=== PATIENT | female | born 1960 | race Caucasian/White ===

== ENCOUNTER 2016-06-29 13:16 | Emergency (ER) | payer MEDICARE ==
[~2016-06-29 13:16] MED LIST: ADVAIR100 INH; ADVIL PO; BRINT10T PO; CIP5 PO; CRESTOR40 MG PO; FLEX PO; GEODON; HALCION0.25 MG PO; L-LYSINE500 M1 PO; LIDOVISCUD; NEXIUM40 PO; PCET PO; PR25 PO; PRAVAC PO; PRILOSEC40 MG PO; PROZAC PO; PYR100B PO; REST15 PO; REST75 PO; SEROQUEL300 MG PO; SUCR PO; SYMBICORT 160/41 INH INH; TRAZODONE; TRAZODONE PO; TRAZODONE150 MG PO; URISPAS100 MG PO; WELLSR150 PO; XANAX1 MG PO; XANAX2 MG PO; ZANTAC150 MG PO; ZOCOR10 PO
[2016-06-29 15:15] LABS: BASOPHILS 0.1 %; BASOPHILS ABSOLUTE 0.01 10/3/uL (0.0-0.16); EOSINOPHILS 1.4 %; EOSINOPHILS ABSOLUTE 0.11 10/3/uL (0.0-0.53); HEMATOCRIT 37.9 % (36.0-48.0); HEMOGLOBIN 12.6 g/dL (12.0-16.0); IMMATURE GRANULOCYTES 0.1 %; IMMATURE GRANULOCYTES ABSOLUTE 0.01 10/3/uL (0.0-0.11); LYMPHOCYTES 30.1 %; LYMPHOCYTES ABSOLUTE 2.44 10/3/uL (0.67-4.30); MEAN CORPUS HGB CONC 33.2 g/dL (32.0-36.0); MEAN CORPUSCULAR HEMOGLOB 30.3 pg (26.0-34.0); MEAN CORPUSCULAR VOLUME 91.1 fL (80-100); MEAN PLATELET VOLUME 9.6 fL (9.2-13.0); MONOCYTES 12.1 %; MONOCYTES ABSOLUTE 0.98 10/3/uL (0.21-1.20); NEUTROPHILS 56.2 %; NEUTROPHILS ABSOLUTE 4.55 10/3/uL (2.02-8.40); PLATELET COUNT 337 10/3/uL (150-400); RBC DISTRIBUTION WIDTH 13.5 % (12.0-16.0); RED CELL COUNT 4.16 10/6/uL (4.0-5.6); WHITE BLOOD CELLS 8.1 10/3/uL (4.5-10.5)
[2016-06-29 15:17] LABS: MANUAL DIFF NO %
[2016-06-29 15:22] LABS: INTERNATIONAL NORMAL RATI 1.1 UNITS (-)
[2016-06-29 15:31] LABS: A/G RATIO 0.8 (0.7-1.9); ALBUMIN 3.2 G/DL (3.5-5.0); BUN (BLOOD UREA NITROGEN) 10 MG/DL (6-23); CHLORIDE, SERUM 102 MMOL/L (96-112); CO2 (CARBON DIOXIDE) 31 MMOL/L (24-34); CREATININE 0.86 MG/DL (0.55-1.02); GFR AFRICAN AMERICAN 89 ML/MIN (>=60); GFR NON AFRICAN AMERICAN 77 ML/MIN (>=60); GLOBULIN 3.9 G/DL (2.5-4.1); GLUCOSE, SERUM 105 MG/DL (60-99); POTASSIUM, SERUM 3.7 MMOL/L (3.5-5.3); SGOT(AST) 39 U/L (5-40); SGPT(ALT) 38 U/L (5-65); SODIUM, SERUM 139 MMOL/L (135-148); TOTAL PROTEIN 7.1 G/DL (6.0-8.5)
[2016-06-29 15:33] LABS: ALKALINE PHOSPHATASE 126 U/L (45-117); TOTAL BILIRUBIN 1.7 MG/DL (0-1.2)
[2016-06-29 17:04] LABS: ASCORBIC ACID (UR NOT ORDER) NEG (NEG); BILIRUBIN, URINE NEGATIVE (NEG); ER URINALYSIS TAT 0 Hrs 11 Mins; KETONE, URINE NEGATIVE (NEG); LEUKOCYTE ESTERASE(NOT OR NEG (NEG); NITRITE (URINE) NEG (NEG); WBC (NOT ORDERED) (RFLEX) 2 (0-5)
[2016-06-29 17:20] LABS: AMPHETAMINES (NOT ORD) NEG (NEG); BENZODIAZEPINES (NOT ORD) POS (NEG); CANNABINOIDS (THC) POS (NEG); COCAINE (NOT ORDERED) NEG (NEG); PHENCYCLIDINE(PCP) NEG (NEG)
[2016-06-29 17:21] LABS: BARBITURATES (NOT ORDERED NEG (NEG); OPIATES POS (NEG); TRICYCLICS NEG (NEG)
== END 2016-06-29 21:11 | disposition home or self-care (01) ==
LOC: ER 13:16
PROVIDERS: Nurse Practitioner Family
DX: S82.852A Displaced trimalleolar fracture of left lower leg, initial encounter for closed fracture (principal); S99.922A Unspecified injury of left foot, initial encounter; S99.921A Unspecified injury of right foot, initial encounter; F17.200 Nicotine dependence, unspecified, uncomplicated; Z88.5 Allergy status to narcotic agent; Z79.899 Other long term (current) drug therapy; X58.XXXA Exposure to other specified factors, initial encounter
CPT/HCPCS: 71010; 73610-LT; 73610-RT; 80053; 80305; 81001; 85025; 85610; 96372; 99284; A9270-GY; J1040; J1885

== ENCOUNTER 2016-07-01 11:22 | Observation (INO) | payer MEDICARE ==
--- NOTE | ~2016-07-01 | OP ---
Record Of Operation [facility] [address] [place]. [address] NAME: LAUREL SILVERMAN : 62 STATUS : DIS [place]ola PAT#: [id number] AGE: 55 ADM/REG DATE : 07/01/16 MR#: [id number] REPORT SERV DATE: 07/08/16 DICTATED BY: MARLEY BRENNER DATE: 07/08/16 REPORT STATUS : Draft TRANSCRIBED BY: MARIA ISABEL DATE: 07/08/16 DATE OF PROCEDURE: 07/01/2016 PREOPERATIVE DIAGNOSES: 1. Right distal fibular avulsion fracture. 2. Left trimalleolar ankle fracture. POSTOPERATIVE DIAGNOSES: 1. Right distal fibular avulsion fracture. 2. Left trimalleolar ankle fracture. PROCEDURES: 1. Right distal fibular ankle fracture ORIF. 2. Left medial malleolar ankle fracture ORIF. 3. Left posterior malleolar ankle fracture closed treatment. 4. Right closed treatment of distal fibular ankle fracture. SURGEON: Jailyn Brenner, D.PAmandaMAmanda ANESTHESIA: General local anesthetic. ESTIMATED BLOOD LOSS: Minimal. COMPLICATIONS: None. INJECTABLES: Approximately 40 mL of a 1:1 mixture of 1% Xylocaine plain and 0.5% Marcaine plain. MATERIALS: Include 1/3 tubular neutralization plate, locking and nonlocking screw fixation with 3.5 and 4.0 screw fixation, 4.0 cancellous partially-threaded screws, 2-0 and 4-0 Vicryl, skin anisha. PROCEDURE IN DETAIL: Under mild sedation, the patient was brought to the operating room and placed on the operating table in supine position. Following general anesthesia, local anesthesia was obtained about the patient's left foot and ankle. Left foot, ankle, lower leg were scrubbed, prepped, and draped in usual aseptic manner. Attention was directed to the procedure. Procedure #1 is left distal fibular ankle fracture ORIF. Attention was directed to the lateral aspect of the patient's left distal fibula and lateral malleolus where a linear 6-8 cm incision was made along the course of the lateral malleolus and distal fibula. The incision was deepened to subcutaneous tissue with care being taken to identify and retract all vital neurovascular structures. All bleeders were cauterized and ligated as necessary. Linear periosteal incision was made overlying the interfrag hematoma formation. Deep retraction ensued. The interfrag hematoma formation was debrided and copiously irrigated. The long spiral oblique fracture was identified and was reduced and held together with Record Of Operation [address] [place]. [address] NAME: LAUREL SILVERMAN : 62 STATUS : DIS [place] PAT#: [id number] AGE: 55 ADM/REG DATE : 07/01/16 MR#: [id number] REPORT SERV DATE: 07/08/16 DICTATED BY: MARLEY BRENNER DATE: 07/08/16 REPORT STATUS : Draft TRANSCRIBED BY: MARIA ISABEL DATE: 07/08/16 fracture reduction clamps as an interfrag screw was placed across the fracture site from anterior to posterior utilizing standard AO principles and techniques. Copious irrigation ensued. A 1/3 tubular neutralization plate was contoured in place to the lateral malleolus and distal fibula. Locking and nonlocking screw fixation was placed utilizing standard AO principles and techniques. Excellent positioning and visualization under fluoroscopy was performed. Attention was directed to the next procedure. Next procedure is left medial malleolar ankle fracture ORIF. Attention was directed to the medial aspect of the patient's left ankle where a linear 4 cm incision was made along the medial aspect of the medial malleolus and distal tibia. The incision was deepened to subcutaneous tissue with care being taken to identify and retract all vital neurovascular structures. All bleeders were cauterized and ligated as necessary. Blunt dissection was continued down to the level of the fracture site of the medial malleolus. Large hematoma formation was evacuated and copiously irrigated. Reduction clamps were utilized to reduce the fracture. Excellent positioning under fluoroscopy guidance was performed with AP oblique and lateral views. Protection of the inferior and posterior tibial tendon was also performed. Next, cannulated 4.0 cancellous screws were placed across the fracture site with excellent positioning noted under fluoroscopy guidance. The guidewire was removed, excellent positioning was noted. Copious irrigation was utilized. Deep and superficial fascial layers were reapproximated and coapted using 2-0 and 4-0 Vicryl. Skin was reapproximated and coapted using skin anisha. Attention was directed to the next procedure. Next procedure is left closed treatment of posterior malleolar fracture. Closed treatment of the posterior malleolar fracture was performed and a well-padded sterile dressing and well-padded posterior splint again was placed about the patient's left foot, ankle, and lower leg. Next procedure is right closed treatment of right distal fibular avulsion fracture. A CAM walker was placed about the patient's right foot and ankle, and non-operative treatment for the right ankle was performed. The patient tolerated the procedure and anesthesia well and was transferred to the recovery room with vital signs stable and vascular status intact to all toes. Following a period of postoperative monitoring, the patient will be transferred to the floor for admission for postoperative pain control. Orders for strict nonweightbearing at all times. Ice and elevate as directed. Will begin Eliquis as well starting tomorrow and will be discharged tomorrow. The patient will follow up with me in the office in 7 to 14 days. REBECA/MARIA ISABEL Jessica VillegasPMicah. / [id number] Record Of [address] [address] NAME: LAUREL SILVERMAN : 62 STATUS : DIS [place] PAT#: [id number] AGE: 55 ADM/REG DATE : 07/01/16 MR#: [id number] REPORT SERV DATE: 07/08/16 DICTATED BY: MARLEY BRENNER DATE: 07/08/16 REPORT STATUS : Draft TRANSCRIBED BY: MARIA ISABEL DATE: 07/08/16 CC: Glendy Villegas M.D.
[2016-07-01 11:54] LABS: HEMATOCRIT 35.4 % (36.0-48.0); HEMOGLOBIN 11.8 g/dL (12.0-16.0)
[2016-07-01 12:04] LABS: CALCIUM, SERUM 9.2 MG/DL (8.5-10.4); CHLORIDE, SERUM 102 MMOL/L (96-112); CO2 (CARBON DIOXIDE) 33 MMOL/L (24-34); CREATININE 0.93 MG/DL (0.55-1.02); GFR AFRICAN AMERICAN 81 ML/MIN (>=60); GFR NON AFRICAN AMERICAN 70 ML/MIN (>=60); GLUCOSE, SERUM 118 MG/DL (60-99); POTASSIUM, SERUM 3.8 MMOL/L (3.5-5.3); SODIUM, SERUM 139 MMOL/L (135-148)
[2016-07-01 12:05] LABS: BUN (BLOOD UREA NITROGEN) 21 MG/DL (6-23)
[2016-07-02] MEDS ORDERED: PR25 PO (14:58)
[2016-07-02] MEDS ORDERED: ELIQUIS 5 MG TAB5 MG PO (14:58)
[2016-07-02] MEDS ORDERED: PCET PO (14:58)
== END 2016-07-02 19:49 | disposition home or self-care (01) ==
LOC: SDC 11:22 → 3SO 16:29
PROVIDERS: Podiatrist Foot & Ankle Surgery
PROC: 0QSK04Z Reposition Left Fibula with Internal Fixation Device, Open Approach (ICD-10-PCS; 2016-07-01)
PROC: 0QSHXZZ Reposition Left Tibia, External Approach (ICD-10-PCS; 2016-07-01)
PROC: 0QSJXZZ Reposition Right Fibula, External Approach (ICD-10-PCS; 2016-07-01)
PROC: 0QSH04Z Reposition Left Tibia with Internal Fixation Device, Open Approach (ICD-10-PCS; principal; 2016-07-01 12:15)
DX: S82.852A Displaced trimalleolar fracture of left lower leg, initial encounter for closed fracture (principal); S82.831A Other fracture of upper and lower end of right fibula, initial encounter for closed fracture; F41.9 Anxiety disorder, unspecified; M19.90 Unspecified osteoarthritis, unspecified site; F32.9 Major depressive disorder, single episode, unspecified; E78.00 Pure hypercholesterolemia, unspecified; K21.9 Gastro-esophageal reflux disease without esophagitis; J45.909 Unspecified asthma, uncomplicated; Z79.899 Other long term (current) drug therapy; Z88.5 Allergy status to narcotic agent; Z88.8 Allergy status to other drugs, medicaments and biological substances; Z98.890 Other specified postprocedural states; Z87.891 Personal history of nicotine dependence
CPT/HCPCS: 27788; 27814; G0378; 76000; 80048; 85014; 85018; 93005; 96374; 96376; 97161-GP; A9270-GY; C1713; G8978-CK-GP; G8979-CK-GP; G8980-CK-GP; J0330; J0690; J1170; J2175; J2250; J2405; J2550; J2710; J3010